=== PATIENT | female | born 1950 | race Caucasian/White ===

== ENCOUNTER 2017-01-02 14:58 | Inpatient (IN) | payer OTHER ==
[~2017-01-02] VITALS: Ht 152.4 cm; Wt 74.0 kg
[2017-01-02] MEDS ORDERED: ALBUTEROL SULFATE 2.5 MG/3 ML ONE (15:22)
[2017-01-02] MEDS ORDERED: SODIUM CHLORIDE FLUSH 10ML SYR IVF ONE ×2 (15:30→16:00)
[2017-01-02] MEDS ORDERED: ALBUTEROL SULFATE 2.5 MG/3 ML NPPB ONE (15:30)
[2017-01-02] MEDS ORDERED: SODIUM CHLORIDE 0.9% 1,000ML IVBOLUS ONE ×2 (15:30→16:00)
[2017-01-02 15:35] LABS: DIFF TOTAL CELLS COUNTED 100 CELL DIFF
[2017-01-02 15:46] LABS: ASPARTATE AMINO TRANSFERASE 114 U/L (15-37); BLOOD UREA NITROGEN 16 mg/dL (7-18)
[2017-01-02 15:51] LABS: IS PT STATUS REG ER OR PRE ER? YES
[2017-01-02 15:59] LABS: VERIFY COUNTS? YES
[2017-01-02] MEDS ORDERED: CEFTRIAXONE PMX 1GM/50ML 50 ML IVPB ONE (16:00)
[2017-01-02] MEDS ORDERED: LEVO50TA5 PO (16:03)
[2017-01-02] MEDS ORDERED: CEFTRIAXONE PMX 1GM/50ML 50 ML ONE (16:38)
[2017-01-02] MEDS ORDERED: DOCUSATE 100 MG CAPSULE PO PRN (17:30)
[2017-01-02] MEDS ORDERED: POLYETHYLENE GLYCOL 17 GM PACKET PO PRN (17:30)
[2017-01-02] MEDS ORDERED: BISACODYL 10 MG SUPP PR PRN (17:30)
[2017-01-02] MEDS ORDERED: HEPARIN 5,000 UNITS/ML, 1ML SQ SCH (17:30)
[2017-01-02] MEDS ORDERED: OMNIPAQUE 350 MG/ML, 100ML BOTTLE ONE (17:41)
[2017-01-02 17:48] VITALS: BP 126/76
[2017-01-02] MEDS ORDERED: HEPARIN 5,000 UNITS/ML, 1ML IV ONE (18:30)
[2017-01-02] MEDS ORDERED: HEPARIN 5,000 UNITS/ML, 1ML IV PRN (18:30)
[2017-01-02] MEDS ORDERED: HEPARIN 25,000 UNITS/500ML PMX 500 ML IV PRN (18:30)
[2017-01-02] MEDS: DOXYCYCLINE 100 MG in DEXTROSE 5% 250 ML IV SCH (18:36)
[2017-01-02 19:33] VITALS: BP 138/80
[2017-01-02 21:02] VITALS: BP 139/81
[2017-01-03 00:27] VITALS: BP 120/69
[2017-01-03] MEDS: DOXYCYCLINE 100 MG in DEXTROSE 5% 250 ML IV SCH ×2 (05:45→17:24)
[2017-01-03 05:49] LABS: ASPARTATE AMINO TRANSFERASE 66 U/L (15-37); BLOOD UREA NITROGEN 13 mg/dL (7-18)
[2017-01-03 06:43] VITALS: BP 120/78
[2017-01-03 08:18] VITALS: BP 120/72
[2017-01-03] MEDS: LEVOTHYROXINE 50 MCG TABLET PO SCH (08:18)
[2017-01-03] MEDS: APIXABAN 5 MG TABLET PO SCH ×2 (11:37→20:33)
[2017-01-03] MEDS: GUAIFENESIN 200 MG TABLET PO SCH ×3 (11:37→20:33)
[2017-01-03] MEDS: NEUTRA PHOS K 250 MG TABLET PO SCH ×3 (11:37→20:33)
[2017-01-03 12:38] VITALS: BP 124/72
[2017-01-03] MEDS: CEFTRIAXONE PMX 1GM/50ML 50 ML IV SCH ×2 (13:09→23:00)
[2017-01-03 19:33] VITALS: BP 119/71
[2017-01-04 01:15] VITALS: BP 104/63
[2017-01-04 05:32] LABS: BLOOD UREA NITROGEN 14 mg/dL (7-18)
[2017-01-04] MEDS: DOXYCYCLINE 100 MG in DEXTROSE 5% 250 ML IV SCH (05:55)
[2017-01-04] MEDS: GUAIFENESIN 200 MG TABLET PO SCH ×2 (05:55→11:25)
[2017-01-04 06:55] VITALS: BP 109/72
[2017-01-04] MEDS ORDERED: POTASSIUM CHLORIDE 20 MEQ TAB.ER.PRT PO ONE ×2 (07:30→12:30)
[2017-01-04] MEDS: NEUTRA PHOS K 250 MG TABLET PO SCH (09:03)
[2017-01-04] MEDS: APIXABAN 5 MG TABLET PO SCH (09:03)
[2017-01-04] MEDS: LEVOTHYROXINE 50 MCG TABLET PO SCH (09:03)
[2017-01-04] MEDS: CEFTRIAXONE PMX 1GM/50ML 50 ML IV SCH (11:25)
[2017-01-04 11:40] LABS: BLOOD UREA NITROGEN 16 mg/dL (7-18)
[2017-01-04] MEDS ORDERED: PHOS250T3 PO (12:16)
[2017-01-04] MEDS ORDERED: CEFD300C37 PO (12:16)
[2017-01-04] MEDS ORDERED: POTA20TA6 PO (12:16)
[2017-01-04] MEDS ORDERED: APIX5TAB PO (12:16)
[2017-01-04] MEDS ORDERED: GUAI200T3 PO (12:16)
== END 2017-01-04 14:15 | disposition home or self-care (01) | DRG 871 ==
LOC: ED 15:48 → EDIP 15:49 → ED 16:12 → 3NE 17:26 → 4EST 20:20 → DCLOUNGE 01-04 13:51
PROVIDERS: ADMIT Internal Medicine; ATTEND Internal Medicine
DX: A41.9 Sepsis, unspecified organism (principal); J96.01 Acute respiratory failure with hypoxia; I26.99 Other pulmonary embolism without acute cor pulmonale; J18.9 Pneumonia, unspecified organism; E03.9 Hypothyroidism, unspecified; E83.39 Other disorders of phosphorus metabolism; E86.0 Dehydration; R74.0 Nonspecific elevation of levels of transaminase and lactic acid dehydrogenase [LDH]; E87.6 Hypokalemia; M21.379 Foot drop, unspecified foot; M54.10 Radiculopathy, site unspecified; F17.210 Nicotine dependence, cigarettes, uncomplicated; Z90.49 Acquired absence of other specified parts of digestive tract; Z83.3 Family history of diabetes mellitus; Z82.49 Family history of ischemic heart disease and other diseases of the circulatory system; Z79.899 Other long term (current) drug therapy
CPT/HCPCS: 36415; 71010; 71275; 80048; 80053; 80061; 81001; 83605; 83690; 83735; 83880; 84100; 84145; 84443; 84484; 85025; 85520; 87040; 87086; 93005; 93306; 93970; 94640; 96361; 96374; J0696; J1644; J7060; J7613; Q9967; J7030

== ENCOUNTER → 2017-09-13 | Outpatient (CLI) | payer OTHER ==
[~2017-09-13] MED LIST: APIX5TAB PO; CEFD300C37 PO; GUAI200T3 PO; LEVO50TA5 PO; PHOS250T3 PO; POTA20TA6 PO
== END ==
LOC: CFH 08:07
PROVIDERS: ATTEND Nurse Practitioner Family
DX: Z12.31 Encounter for screening mammogram for malignant neoplasm of breast (principal); Z13.820 Encounter for screening for osteoporosis; N95.9 Unspecified menopausal and perimenopausal disorder; M85.80 Other specified disorders of bone density and structure, unspecified site
CPT/HCPCS: 77080; 77067

== ENCOUNTER 2021-04-30 08:30 | Outpatient (CLI) | payer BC ==
[~2021-04-30 08:30] MED LIST changes: -GUAI200T3 PO; +GUAI200T37 PO; +POTA-143 PO; -POTA20TA6 PO
== END 2021-04-30 23:59 | disposition home or self-care (01) ==
LOC: CFH 08:30
PROVIDERS: ATTEND Nurse Practitioner Family
DX: Z12.31 Encounter for screening mammogram for malignant neoplasm of breast (principal); M85.80 Other specified disorders of bone density and structure, unspecified site; M81.0 Age-related osteoporosis without current pathological fracture
CPT/HCPCS: 77063; 77067; 77080